=== PATIENT | female | born 1950 | race Caucasian/White ===

== ENCOUNTER 2017-12-27 09:46 | Inpatient (IN) | payer MEDICARE ==
[2017-12-27] MEDS ORDERED: ALBUTEROL NEBULIZED 2.5 MG/3 ML INHALATION STA (10:18)
[2017-12-27] MEDS ORDERED: methylPREDNISolone SOD SUCCI 125 MG/2 ML VIAL IV STA (10:18)
[2017-12-27] MEDS ORDERED: IPRATROPIUM 0.5 MG/2.5 ML NEBU INHALATION STA (10:18)
--- NOTE | 2017-12-27 10:26 | ED ---
General Adult HPI - General Chief complaint: Shortness of Breath Stated complaint: COPD Time Seen by Provider: 12/27/17 10:00 Source: patient, family, RN notes reviewed Mode of arrival: ambulatory Limitations: no limitations - History of Present Illness Initial comments: This is a 67-year-old female presents emergency department with past medical history significant for COPD and she continues to smoke. Patient comes in today because she's having difficulty breathing over the last few days is gotten considerably worse and her cough is a little worse than it normally is. Patient denies any fever chills. Patient states that she feels as though there is some rattling in her lungs is not normally there. Patient denies any chest pain or palpitations. Patient denies any abdominal pain patient denies nausea vomiting diarrhea. Patient denies any headache patient denies numbness weakness. Patient denies any lightheadedness or dizziness. Patient denies any calf pain or leg swelling. - Related Data Home Medications Medication Instructions Recorded Confirmed Albuterol Inhaler [Ventolin Hfa 2 puff INHALATION RT-Q6H PRN 11/19/15 12/27/17 Inhaler] ALPRAZolam [Xanax] 1 mg PO BID 12/27/17 12/27/17 Budesonide/Formoterol Fumarate 2 puff PO BID 12/27/17 12/27/17 [Symbicort 80-4.5 Mcg Inhaler] Levothyroxine Sodium [Synthroid] 100 mcg PO DAILY 12/27/17 12/27/17 Mirtazapine 45 mg PO HS 12/27/17 12/27/17 Allergies Allergy/AdvReac Type Severity Reaction Status Date / Time Sulfa (Sulfonamide Allergy Rash/Hives Verified 12/27/17 10:36 Antibiotics) Review of Systems ROS Statement: Those systems with pertinent positive or pertinent negative responses have been documented in the HPI. ROS Other: All systems not noted in ROS Statement are negative. Past Medical History Past Medical History: COPD, Thyroid Disorder Additional Past Medical History / Comment(s): Restless leg syndrome History of Any Multi-Drug Resistant Organisms: None Reported Past Surgical History: Hysterectomy Additional Past Surgical History / Comment(s): face lift, thyroidectomy Past Anesthesia/Blood Transfusion Reactions: No Reported Reaction Past Psychological History: Anxiety, Depression Smoking Status: Current every day smoker Past Alcohol Use History: Rare Past Drug Use History: None Reported - Past Family History Father Family Medical History: No Reported History General Exam - General Exam Comments Initial Comments: GENERAL: Patient is well-developed and well-nourished. Patient is nontoxic and well- hydrated and is in moderate distress. ENT: Neck is soft and supple. No significant lymphadenopathy is noted. Oropharynx is clear. Moist mucous membranes. Neck has full range of motion without eliciting any pain. EYES: The sclera were anicteric and conjunctiva were pink and moist. Extraocular movements were intact and pupils were equal round and reactive to light. Eyelids were unremarkable. PULMONARY: Patient is diffusely wheezing CARDIOVASCULAR: There is a regular rate and rhythm without any murmurs gallops or rubs. ABDOMEN: Soft and nontender with normal bowel sounds. No palpable organomegaly was noted. There is no palpable pulsatile mass. SKIN: Skin is clear with no lesions or rashes and otherwise unremarkable. NEUROLOGIC: Patient is alert and oriented x3. Cranial nerves II through XII are grossly intact. Motor and sensory are also intact. Normal speech, volume and content. Symmetrical smile. MUSCULOSKELETAL: Normal extremities with adequate strength and full range of motion. No lower extremity swelling or edema. No calf tenderness. LYMPHATICS: No significant lymphadenopathy is noted PSYCHIATRIC: Normal psychiatric evaluation. Normal interpersonal interactions appears functionally intact in deals appropriately with others. No signs of depression. No signs of anxiety. Limitations: no limitations Course Vital Signs 12/27/17 12/27/17 12/27/17 10:05 10:37 10:52 Temperature 98.2 F Pulse Rate 85 80 79 Respiratory 26 H Rate Blood Pressure 133/68 O2 Sat by Pulse 95 Oximetry 12/27/17 12/27/17 12/27/17 11:06 11:11 11:14 Temperature Pulse Rate 83 87 90 Respiratory 24 Rate Blood Pressure 138/84 O2 Sat by Pulse 100 Oximetry Medical Decision Making - Medical Decision Making EKG shows a normal sinus rhythm at 80 bpm ND interval is 164 QRS 72 QT interval 354 QTC is 428. Patient's EKG shows no ST segment elevation or depression or T wave abnormalities are noted Chest x-ray shows no acute abnormality. Patient got 3 consecutive breathing treatments and some steroids and her lungs still had diffuse wheezing after this and she felt no better. At this point time I spoke with Dr. Finn and admitted the patient and I wrote admitting orders. After ambulating the patient to the bathroom her pulse ox dropped significantly and then had to be placed on a couple liters of oxygen. - Lab Data Result diagrams: 12/27/17 10:20 12/27/17 10:20 Lab Results 12/27/17 12/27/17 12/27/17 Range/Units 10:20 10:20 10:20 WBC 7.2 (3.8-10.6) k/uL RBC 4.60 (3.80-5.40) m/uL Hgb 13.8 (11.4-16.0) gm/dL Hct 42.1 (34.0-46.0) % MCV 91.5 (80.0-100.0) fL MCH 30.0 (25.0-35.0) pg MCHC 32.8 (31.0-37.0) g/dL RDW 13.6 (11.5-15.5) % Plt Count 266 (150-450) k/uL Neutrophils % 74 % Lymphocytes % 14 % Monocytes % 8 % Eosinophils % 3 % Basophils % 1 % Neutrophils # 5.3 (1.3-7.7) k/uL Lymphocytes # 1.0 (1.0-4.8) k/uL Monocytes # 0.6 (0-1.0) k/uL Eosinophils # 0.2 (0-0.7) k/uL Basophils # 0.0 (0-0.2) k/uL PT (9.0-12.0) sec INR (<1.2) APTT (22.0-30.0) sec Sodium 137 (137-145) mmol/L Potassium 4.8 (3.5-5.1) mmol/L Chloride 106 (98-107) mmol/L Carbon Dioxide 23 (22-30) mmol/L Anion Gap 8 mmol/L BUN 9 (7-17) mg/dL Creatinine 0.72 (0.52-1.04) mg/dL Est GFR (CKD-EPI)AfAm >90 (>60 ml/min/1.73 sqM) Est GFR (CKD-EPI)NonAf 88 (>60 ml/min/1.73 sqM) Glucose 97 (74-99) mg/dL Calcium 9.2 (8.4-10.2) mg/dL Total Bilirubin 0.4 (0.2-1.3) mg/dL AST 26 (14-36) U/L ALT 14 (9-52) U/L Alkaline Phosphatase 66 (38-126) U/L Total Creatine Kinase 72 (30-135) U/L CK-MB (CK-2) 2.9 H (0.0-2.4) ng/mL CK-MB (CK-2) Rel Index 4.0 Troponin I <0.012 (0.000-0.034) ng/mL Total Protein 6.7 (6.3-8.2) g/dL Albumin 4.0 (3.5-5.0) g/dL 12/27/17 Range/Units 10:20 WBC (3.8-10.6) k/uL RBC (3.80-5.40) m/uL Hgb (11.4-16.0) gm/dL Hct (34.0-46.0) % MCV (80.0-100.0) fL MCH (25.0-35.0) pg MCHC (31.0-37.0) g/dL RDW (11.5-15.5) % Plt Count (150-450) k/uL Neutrophils % % Lymphocytes % % Monocytes % % Eosinophils % % Basophils % % Neutrophils # (1.3-7.7) k/uL Lymphocytes # (1.0-4.8) k/uL Monocytes # (0-1.0) k/uL Eosinophils # (0-0.7) k/uL Basophils # (0-0.2) k/uL PT 10.3 (9.0-12.0) sec INR 1.0 (<1.2) APTT 22.4 (22.0-30.0) sec Sodium (137-145) mmol/L Potassium (3.5-5.1) mmol/L Chloride (98-107) mmol/L Carbon Dioxide (22-30) mmol/L Anion Gap mmol/L BUN (7-17) mg/dL Creatinine (0.52-1.04) mg/dL Est GFR (CKD-EPI)AfAm (>60 ml/min/1.73 sqM) Est GFR (CKD-EPI)NonAf (>60 ml/min/1.73 sqM) Glucose (74-99) mg/dL Calcium (8.4-10.2) mg/dL Total Bilirubin (0.2-1.3) mg/dL AST (14-36) U/L ALT (9-52) U/L Alkaline Phosphatase (38-126) U/L Total Creatine Kinase (30-135) U/L CK-MB (CK-2) (0.0-2.4) ng/mL CK-MB (CK-2) Rel Index Troponin I (0.000-0.034) ng/mL Total Protein (6.3-8.2) g/dL Albumin (3.5-5.0) g/dL Critical Care Time Critical Care Time: Yes Total Critical Care Time: 35 Disposition Clinical Impression: Acute exacerbation of chronic obstructive airways disease Disposition: ADMITTED IP TO THIS HOSP Referrals: Rolando Jiang MD [Primary Care Provider] - 1-2 days Time of Disposition: 11:36
[2017-12-27 10:49] LABS: Basophils % (A) 1 %; Eosinophils # (A) 0.2 k/uL (0-0.7); Eosinophils % (A) 3 %; HCT 42.1 % (34.0-46.0); HGB 13.8 gm/dL (11.4-16.0); Lymphocytes % (A) 14 %; MCHC 32.8 g/dL (31.0-37.0); MCV 91.5 fL (80.0-100.0); Mean Platelet Volume 7.1; Monocytes # (A) 0.6 k/uL (0-1.0); Monocytes % (A) 8 %; Neutrophils # (A) 5.3 k/uL (1.3-7.7); Neutrophils % (A) 74 %; Platelet Count 266 k/uL (150-450); RDW 13.6 % (11.5-15.5); WBC 7.2 k/uL (3.8-10.6)
[2017-12-27 10:52] LABS: ALT 14 U/L (9-52); AST 26 U/L (14-36); Alkaline Phosphatase 66 U/L (38-126); Anion Gap 8 mmol/L; Blood Urea Nitrogen 9 mg/dL (7-17); Calcium 9.2 mg/dL (8.4-10.2); Carbon Dioxide 23 mmol/L (22-30); Chloride 106 mmol/L (98-107); Glucose 97 mg/dL (74-99); Potassium 4.8 mmol/L (3.5-5.1); Sodium 137 mmol/L (137-145); Total Bilirubin 0.4 mg/dL (0.2-1.3); Total Protein 6.7 g/dL (6.3-8.2)
[2017-12-27 11:05] LABS: Creatine Kinase 72 U/L (30-135)
[2017-12-27 11:18] LABS: Creatine Kinase MB 2.9 ng/mL (0.0-2.4); Troponin I <0.012 ng/mL (0.000-0.034)
[2017-12-27 11:21] LABS: Partial Thromboplastin Time 22.4 sec (22.0-30.0); Prothrombin Time 10.3 sec (9.0-12.0)
--- NOTE | 2017-12-27 11:34 | XR ---
EXAMINATION TYPE: XR chest 2V DATE OF EXAM: 12/27/2017 COMPARISON: 11/19/2015 HISTORY: 67-year-old female difficulty breathing and shortness of breath TECHNIQUE: Frontal and lateral views FINDINGS: Heart normal size. Aorta and pulmonary vasculature within normal limits. Hyperinflation with flatteni ng of the hemidiaphragms and biapical pleural parenchymal scarring. No consolidation or pleural effus ion. IMPRESSION: COPD without acute cardiopulmonary process.
[2017-12-27] MEDS: IPRATROPIUM-ALBUTEROL 3 ML NEB INHALATION SCH ×3 (15:31→19:30)
[2017-12-27] MEDS: methylPREDNISolone SOD SUCCI 40 MG/ML 1 ML VIAL IV SCH ×2 (16:42→22:52)
[2017-12-27] MEDS ORDERED: methylPREDNISolone SOD SUCCI 125 MG/2 ML VIAL IV SCH (18:00)
[2017-12-27] MEDS: BUDESONIDE 0.5 MG/2 ML NEBU INHALATION SCH (19:30)
[2017-12-27] MEDS ORDERED: IPRATROPIUM-ALBUTEROL 3 ML NEB INHALATION PRN (19:43)
[2017-12-27] MEDS ORDERED: FORMOTEROL FUMARATE PO SCH (21:00)
[2017-12-27] MEDS ORDERED: BUDESONIDE PO SCH (21:00)
[2017-12-27] MEDS ORDERED: [UNRECOGNIZED DRUG - OTHER] PO SCH (21:00)
[2017-12-27] MEDS: MIRTAZAPINE 45 MG TABLET PO SCH (21:18)
[2017-12-27] MEDS: ALPRAZolam 1 MG TAB PO SCH (21:18)
[2017-12-27] MEDS: CALCIUM CARBONATE 500 MG CHEWABLE PO PRN (23:58)
[2017-12-28] MEDS: LEVOTHYROXINE 100 MCG TAB PO SCH (06:15)
[2017-12-28] MEDS: methylPREDNISolone SOD SUCCI 40 MG/ML 1 ML VIAL IV SCH ×2 (08:37→15:28)
[2017-12-28] MEDS: ALPRAZolam 1 MG TAB PO SCH ×2 (08:38→21:10)
[2017-12-28] MEDS: IBUPROFEN 400 MG TAB PO PRN ×2 (08:56→14:36)
[2017-12-28] MEDS: BUDESONIDE 0.5 MG/2 ML NEBU INHALATION SCH ×2 (09:05→18:59)
[2017-12-28] MEDS: IPRATROPIUM-ALBUTEROL 3 ML NEB INHALATION SCH ×4 (09:05→18:59)
--- NOTE | 2017-12-28 17:06 | HP ---
HISTORY AND PHYSICAL CHIEF COMPLAINT: Difficulty breathing. HISTORY OF PRESENT ILLNESS: This is the first admission for this 67-year-old white female. She has been a long- term heavy smoker. She developed sore throat and a slight URI and then went on to have progressively more difficulty breathing. Then she came to the emergency room, where she was admitted with exacerbation of COPD. She has had no fever, cough, hemoptysis, nausea, vomiting, etc. REVIEW OF SYSTEMS: Otherwise unremarkable. She has had no headaches, change in the vision or the hearing, history of heart disease, abdominal pain, diarrhea, vomiting, urinary complaints, etc. ALLERGIES: Past medical history reveals that she is allergic to SULFA. MEDICATIONS: 1. Symbicort 160/4.5. 2. Levothyroxine 0.1. 3. Advair 50/500. 4. Xanax 1 mg. 5. Mirtazapine 45. 6. Albuterol updraft. 7. Ventolin HFA. Past history and family history are otherwise unremarkable or non-contributory. PHYSICAL EXAMINATION: Blood pressure is 100/70 with a pulse of 90, respirations of 42, and she is afebrile. In general she appeared to be slender, tanned and in respiratory distress. Head, ears, eyes, nose, mouth and throat were normal. Lymph nodes were not enlarged. Chest demonstrated increased AP diameter with tachypnea, expiratory wheezing and generalized wheezes, rales and rhonchi. Cardiac exam demonstrated tachycardia. The abdomen was soft and nontender. EXTREMITIES: Normal. Neurological she was intact. She is admitted to the hospital with diagnosis: Exacerbation of chronic obstructive pulmonary disease. PLAN: 1. Bed rest. 2. IV fluids. 3. Updrafts. 4. IV steroids as well as inhaled steroids. MMODL / IJN: [id number] /
--- NOTE | 2017-12-28 19:11 | PN ---
PROGRESS NOTE DATE OF SERVICE: 12/28/2017. CHIEF COMPLAINT: Exacerbation of chronic obstructive pulmonary disease. HISTORY OF PRESENT ILLNESS: This lady is not doing much better. She is still very tight and wheezy. PHYSICAL EXAM: Breath sounds are diminished throughout with rales anterior and posteriorly and inspiratory and expiratory wheezing. Cardiac exam demonstrates tachycardia. IMPRESSION: Exacerbation of chronic obstructive pulmonary disease. PLAN: Continue with current program and reassess in 24 hours. MMODL / IJN: [id number] /
[2017-12-28] MEDS: guaiFENesin-DM 100-10MG/5ML 10 ML CUP PO PRN (19:40)
[2017-12-28] MEDS: MIRTAZAPINE 45 MG TABLET PO SCH (21:04)
[2017-12-28] MEDS: CALCIUM CARBONATE 500 MG CHEWABLE PO PRN (21:10)
[2017-12-29] MEDS: methylPREDNISolone SOD SUCCI 40 MG/ML 1 ML VIAL IV SCH ×4 (00:25→23:50)
[2017-12-29] MEDS: LEVOTHYROXINE 100 MCG TAB PO SCH (06:32)
[2017-12-29] MEDS: BUDESONIDE 0.5 MG/2 ML NEBU INHALATION SCH ×2 (07:11→19:15)
[2017-12-29] MEDS: IPRATROPIUM-ALBUTEROL 3 ML NEB INHALATION SCH ×4 (07:11→19:15)
[2017-12-29] MEDS: CALCIUM CARBONATE 500 MG CHEWABLE PO PRN (07:27)
[2017-12-29] MEDS: ALPRAZolam 1 MG TAB PO SCH ×2 (07:27→21:15)
[2017-12-29] MEDS: IBUPROFEN 600 MG TAB PO PRN ×2 (07:27→14:33)
[2017-12-29] MEDS: guaiFENesin-DM 100-10MG/5ML 10 ML CUP PO PRN ×2 (07:27→16:39)
[2017-12-29] MEDS: NICOTINE 14MG/24HR PATCH TRANSDERM SCH (08:36)
--- NOTE | 2017-12-29 18:16 | PN ---
PROGRESS NOTE DATE OF SERVICE: 12/29/2017 CHIEF COMPLAINT: Exacerbation of COPD. HISTORY OF PRESENT ILLNESS: This lady is just about the same. She really has not improved. She is still very dyspneic. PHYSICAL EXAMINATION: Chest is wheezy. She has decreased breath sounds throughout with expiratory and inspiratory wheezing. Cardiac exam is normal. IMPRESSION: Exacerbation of chronic obstructive pulmonary disease with reactive airway disease. PLAN: Continue with current program. MMODL / IJN: [id number] /
[2017-12-29] MEDS: MIRTAZAPINE 45 MG TABLET PO SCH (21:15)
[2017-12-30] MEDS: LEVOTHYROXINE 100 MCG TAB PO SCH (06:20)
[2017-12-30] MEDS: ALPRAZolam 1 MG TAB PO SCH ×2 (07:28→19:17)
[2017-12-30] MEDS: methylPREDNISolone SOD SUCCI 40 MG/ML 1 ML VIAL IV SCH ×3 (07:28→23:44)
[2017-12-30] MEDS: NICOTINE 14MG/24HR PATCH TRANSDERM SCH (07:54)
[2017-12-30] MEDS: BUDESONIDE 0.5 MG/2 ML NEBU INHALATION SCH ×2 (08:06→20:23)
[2017-12-30] MEDS: IPRATROPIUM-ALBUTEROL 3 ML NEB INHALATION SCH ×4 (08:06→20:23)
[2017-12-30] MEDS: IBUPROFEN 600 MG TAB PO PRN (09:28)
--- NOTE | 2017-12-30 14:14 | XR ---
EXAMINATION TYPE: XR chest 2V DATE OF EXAM: 12/30/2017 COMPARISON: Prior chest x-ray 12/27/2017 HISTORY: Pneumonitis, shortness of breath and COPD TECHNIQUE: Frontal and lateral views of the chest are obtained. FINDINGS: Biapical pleural thickening is stable. There is no focal air space opacity, pleural effusi on, or pneumothorax seen. The cardiac silhouette size is stable, small. There is hyperinflation sugg esting underlying COPD. Patient is rotated. There may be spinal curvature. The osseous structures are intact. IMPRESSION: No acute cardiopulmonary process.
--- NOTE | 2017-12-30 14:50 | PN ---
PROGRESS NOTE CHIEF COMPLAINT: Exacerbation of COPD. HISTORY OF PRESENT ILLNESS: This lady thinks she might be slightly better, but her progress is slow. PHYSICAL EXAMINATION: She still has wheezing bilaterally and slightly less rhonchi. Breath sounds are greatly diminished and she still has an inspiratory and expiratory squeak. Cardiac exam is normal. IMPRESSION: Exacerbation of chronic obstructive pulmonary disease. PLAN: Continue with current program until she opens up enough that she can be discharged. MMODL / IJN: [id number] /
[2017-12-30] MEDS: MIRTAZAPINE 45 MG TABLET PO SCH (19:17)
[2017-12-31] MEDS: LEVOTHYROXINE 100 MCG TAB PO SCH (06:30)
[2017-12-31] MEDS: NICOTINE 14MG/24HR PATCH TRANSDERM SCH (08:05)
[2017-12-31] MEDS: methylPREDNISolone SOD SUCCI 40 MG/ML 1 ML VIAL IV SCH ×3 (08:05→23:37)
[2017-12-31] MEDS: ALPRAZolam 1 MG TAB PO SCH ×2 (08:05→20:05)
[2017-12-31] MEDS: IPRATROPIUM-ALBUTEROL 3 ML NEB INHALATION SCH ×4 (08:16→20:31)
[2017-12-31] MEDS: BUDESONIDE 0.5 MG/2 ML NEBU INHALATION SCH ×2 (08:16→20:31)
[2017-12-31] MEDS ORDERED: MONTELUKAST 10 MG TAB PO STA (10:37)
--- NOTE | 2017-12-31 14:30 | PN ---
PROGRESS NOTE CHIEF COMPLAINT: Exacerbation of chronic obstructive pulmonary disease. HISTORY OF PRESENT ILLNESS: This lady is better, but only slightly. She continues to be short of breath and have wheezing on inspiration/expiration. PHYSICAL EXAM: She is afebrile. Breath sounds are still poor bilaterally and she has expiratory inspiratory wheezes with occasional rales. Cardiac exam is normal. IMPRESSION: Exacerbation of chronic obstructive pulmonary disease. PLAN: No change in her current program. MMODL / IJN: [id number] /
[2017-12-31 14:40] VITALS: RESP 18
[2017-12-31 17:19] LABS: Glucose,Whole Blood 152 mg/dL (75-99)
[2017-12-31] MEDS: MIRTAZAPINE 45 MG TABLET PO SCH (20:05)
[2018-01-01] MEDS: LEVOTHYROXINE 100 MCG TAB PO SCH (06:21)
[2018-01-01] MEDS: ALPRAZolam 1 MG TAB PO SCH (07:44)
[2018-01-01] MEDS: NICOTINE 14MG/24HR PATCH TRANSDERM SCH (07:44)
[2018-01-01] MEDS: methylPREDNISolone SOD SUCCI 40 MG/ML 1 ML VIAL IV SCH (07:44)
[2018-01-01 08:05] VITALS: TEMP 97.8
[2018-01-01 08:06] VITALS: BP 116/78
[2018-01-01] MEDS: IPRATROPIUM-ALBUTEROL 3 ML NEB INHALATION SCH ×2 (08:43→12:09)
[2018-01-01] MEDS: BUDESONIDE 0.5 MG/2 ML NEBU INHALATION SCH (08:43)
[2018-01-01 08:46] VITALS: PULSE 88
--- NOTE | 2018-01-01 14:10 | DS ---
DISCHARGE SUMMARY CHIEF COMPLAINT: Difficulty breathing. HISTORY OF PRESENT ILLNESS AND PHYSICAL EXAM: Details of this lady's history and physical can be found in the initial workup. LABORATORY STUDIES: While she was in a hospital she had laboratory studies, details of which can be found laboratory section of her chart. COURSE IN HOSPITAL: After admission she was placed on bedrest, started on intravenous fluids, updrafts and IV inhaled steroids. She remained tight for several days and then finally started to clear. It was felt that she could go home on the . She will go home on her usual activity, diet and medication along with Medrol Dosepak and she will be seen in 1 or 2 days in the office. FINAL DIAGNOSIS: Exacerbation of chronic obstructive pulmonary disease. OPERATIONS: None. CONSULTATIONS: None. She is improved. SHANA / CURTIS: [id number] /
[2018-01-02] MEDS ORDERED: methylPREDNISolone 4 MG TAB TAPER PO SCH (09:00)
== END 2018-01-01 12:45 | disposition home or self-care (01) | DRG 192 ==
LOC: EC 09:46 → 4MS4W 11:36
PROVIDERS: ADMIT Family Medicine; ATTEND Family Medicine
DX: J44.1 Chronic obstructive pulmonary disease with (acute) exacerbation (principal); E89.0 Postprocedural hypothyroidism; F17.200 Nicotine dependence, unspecified, uncomplicated; G25.81 Restless legs syndrome; Z90.710 Acquired absence of both cervix and uterus; Z79.890 Hormone replacement therapy; Z79.51 Long term (current) use of inhaled steroids; Z79.899 Other long term (current) drug therapy
CPT/HCPCS: 36415; 71046; 80053; 82550; 82553; 83880; 84484; 85025; 85379; 85610; 85730; 93005; 94640; 94760; 96374; 99291